=== PATIENT | male | born 1955 | race Caucasian/White ===

== ENCOUNTER 2023-04-29 08:32 | Emergency (ER) | payer OTHER ==
--- OUTSIDE RECORDS SUMMARY | 2023-04-29 08:35 | XMS REPORT | Continuity of Care Document ---
:1955 Author Organization [facility] t Address [address] [place] [address] Care Team Providers Name Role Phone José Miguel Hernandez Primary Care Physician JOSE D BUCK Attending Clinician Unavailable Kalia Chairez MD Attending Clinician Jose D Buck MD Attending Clinician Doctor Unassigned, [place] Attending Clinician Unavailable ALEX RAUSCH Attending Clinician Unavailable Payers Payer Name Policy Type Policy Number Effective Date Expiration Date Cyndee gonzalez [employer] MANAGED [id number] 2021 MEDICARE PPO-ARIELA 00:00:00 [employer] O [id number] 2018 00:00:00 Problems Condition Condition Condition Status Onset Resolution Last Treating Co mments Source Name Details Category Date Date Treatment Clinician Date No known No known Disease Unive rs active active ity of problems problems [facility] Allergies, Adverse Reactions, Alerts This patient has no known allergies or adverse reactions. Social History Social Habit Start Date Stop Date Quantity Comments Source Exposure to 2021-10-01 2021-10-11 Not sure [facility] SARS-CoV-2 (event) 00:00:00 09:59:00 Medica l Branch Sex Assigned [birth year] [facility] 00:00:00 00:00:00 Medical Branch Smoking Status Start Date Stop Date Source Unknown if ever smoked [facility] Medications Ordered Filled Start Stop Current Ordering Indication Dosage Frequency Signature Comments Components Source Medication Medication Date Date Medication? Clinician (SIG) Name Name ketoconazol Yes [id number] Apply to Univers e 2 % 4-27 area(s) [place] Medical for Branch Itching. ketoconazol Yes [id number] Apply to Univers e 2 % cream 4-27 area(s) ity o f 00:00: daily. [address] hydrocortis Yes [id number] Apply to Univers one 2.5 % 4-27 area(s) 2 ity o f cream 00:00: (two) [place] 00 times Medical daily as Branch needed for Rash. Stop when clear, restart if rash returns. ketoconazol 2018-06 Yes [id number] Apply to Univers e 2 % 1-18 area(s) ity of shamp[place] needed Medical for Branch Itching. cefUROXime Yes TK 1 T PO Un lea 500 mg 3-04 BID ity of tablet 00:00: [address] Vital Signs Vital Name Observation Time Observation Value Comments Source Body height 2021-10-11 15:10:00 167.6 cm [facility] Procedures This patient has no known procedures. Encounters Start End Encounter Admission Attending Care Care Encounter Source Date/Time Date/Time Type Type Clinicians Facility Department ID 2021-10-11 2021-10-11 Outpatient Sri BUCK [facility] [id number] [facility] 10:15:00 11:23:28 JOSE D overton [facility] 2021-10-11 2021-10-11 Office Kalia Chairez [id number] [facility] 10:15:00 11:23:28 Visit Jose D Buck [facility] [id number] ity of CL[id number] [phone] [address] 2021-10-11 2021-10-11 Outpatient Sri BUCK [facility] [id number] Univers 10:15:00 11[facility]23:[facility]11 2021-10-11 Orders Doctor EDMOND [id number] Univers 00:00:00 00:00:00 Only Unassigned, ROBINSON [id number] ity of [place] [facility] [id number] [place] as [phone] [facility] [address] [place] 2021-10-11 2021-10-11 Letter Doctor FELI [id number] Univers 00:00:00 00:00:00 (Out) Unassigned, ROBINSON [id number] ity of [place] [facility] [id number] [place] [phone] [facility] [address] [place] 2020-08-21 2020-08-21 Outpatient [facility] [id number] Univers 09:25:00 09:25:00 ity [facility] 2020-08-20 2020-08-20 [facility] [id number] Univers 11:20:00 11:20:00 ALEX ity [facility] 2020-07-24 2020-07-24 Outpatient [facility] [id number] Univers 10:50:00 10:50:00 ity [facility] 2020-05-31 2020-05-31 Office CHRIST Buck [id number] Univers 11:36:38 12:10:05 Visit Jose D [facility] [id number] ity [id number] [phone] [address] 2020-05-31 2020-05-31 [facility] [id number] Univers 11:45:00 11:45:00 JOSE D ity [facility] 2020-05-31 2020-05-31 Orders Doctor EDMOND [id number] Univers 00:00:00 00:00:00 Only Unassigned, ROBIN[place] [id number] ity of [place] [facility] [id number] [place] [phone] [address] 2020-05-31 2020-05-31 Letter Doctor FELI [id number] Univers 00:00:00 00:00:00 (Out) Unassigned, ROBINSON [id number] ity of [place] [facility] [id number] [place] [phone] [facility] 044 Branch Results This patient has no known results.
[2023-04-29 08:54] LABS: Absolute Lymphocytes (CBC) 2.1 K/uL (0.7-4.9); Hematocrit 48.7 % (39.6-49.0); Lymphocytes % 21.9 % (15.3-44.8); MCV 93.8 fL (80-100); MPV 9.3 fL (7.6-11.3); Platelets 200 thou/uL (152-406); RBC Red Blood Cell Count 5.19 M/uL (4.33-5.43)
[2023-04-29] MEDS ORDERED: FAMOTIDINE 20 MG/2 ML VIAL IV ONE (09:00)
[2023-04-29 09:11] LABS: Albumin 4.2 g/dL (3.4-5.0); Bilirubin Total 1.4 mg/dL (0.2-1.0); Potassium 4.1 mEq/L (3.5-5.1)
--- NOTE | 2023-04-29 09:34 | RAD REPORT ---
EXAM DESCRIPTION: US - Abdomen Exam Limited - 04/29/2023 9:05 am CLINICAL HISTORY: ABD PAIN COMPARISON: Abdomen Exam Complete dated 01/01/2019 TECHNIQUE: Sonographic grayscale and color flow images of the right upper abdominal quadrant were o btained. FINDINGS: The gallbladder demonstrates no gallstones. No pericholecystic fluid or gallbladder wall t hickening. The common bile duct is normal measuring 3 mm. The liver demonstrates no findings of intrahepatic biliary dilatation. Diffuse hepatic parenchymal hy perechogenicity suggesting steatosis. Small irregular focus of hypoattenuation adjacent to the gallbl adder bed, may represent focal fatty sparing or a small cyst IMPRESSION: No evidence of cholelithiasis or acute cholecystitis. Diffuse hepatic steatosis with nonspecific hypoattenuating focus, may represent focal fatty sparing.
--- NOTE | 2023-04-29 10:20 | RAD REPORT ---
EXAM DESCRIPTION: CT - Abdomen Pelvis W Contrast - 04/29/2023 9:54 am CLINICAL HISTORY: ABD PAIN COMPARISON: Abdomen Exam Limited dated 04/29/2023; Abdomen Exam Complete dated 01/01/2019 TECHNIQUE: Thin cut axial CT imaging of the abdomen and pelvis was performed following intravenous a dministration of 100 mL Isovue 300. Multiplanar reformats were generated and reviewed. All CT scans are performed using dose optimization technique as appropriate and may include automated exposure control or mA/KV adjustment according to patient size. FINDINGS: No suspicious findings in the lung bases. The liver, spleen, adrenal glands, and pancreas show no suspicious findings. Gallbladder and biliary tree are also without suspicious finding. Symmetric renal function is seen with no hydronephrosis or radiopaque calculi. Large left renal cysts , including a lobulated septated upper pole 7.8 cm cyst with some minor septal calcification. A solid mass or peripheral cyst component is present at the upper pole just at the medial margin of this cys t, measuring 2.3 x 2.1 cm. No dilated bowel loops or bowel wall thickening. No free air, free fluid or inflammatory stranding. N o hernia, mass or bulky lymphadenopathy. The urinary bladder is without significant finding. No suspicious bony findings. IMPRESSION: Solid left renal 2.3 cm mass. This raises concern for renal cell carcinoma until proven otherwise. Other benign-appearing renal cysts, including a cyst with thin septations at the lateral m argin of this mass. No acute intra-abdominal process.
[2023-04-29 10:24] LABS: Urine Bilirubin NEGATIVE (Negative); Urine Blood Negative (Negative); Urine Clarity Clear (Clear); Urine Color Light-Yellow (Yellow); Urine Glucose NEGATIVE (Negative); Urine Protein NEGATIVE (Negative); Urine Urobilinogen Normal (Normal)
--- NOTE | 2023-04-29 10:34 | EDPHYS ---
Physician Documentation [facility] Name: Paul Solis Sr Age: 67 yrs Sex: Male : 1955 Arrival Date: 04/29/2023 Time: 08:32 Bed 8 Private MD: Paul Hernandez T ED Physician Gokul Rivera HPI: 04/29 08:42 This 67 yrs old Male presents to ER via Unassigned with complaints of Abdominal Pain. ms3 08:42 67-year-old male with no past medical history presents for right upper quadrant ms3 abdominal pain that began on Saturday. Patient states the pain radiates to his back is rated at 4-5/10. Patient states taking Tylenol and Advil helps as well as standing. Patient denies nausea, vomiting, fevers, chills. Historical: - Allergies: 08:43 No Known Allergies; jl7 - Home Meds: 08:43 None [Active]; jl7 - PMHx: 08:43 None; jl7 - PSHx: 08:43 Appendectomy; jl7 - Immunization history:: Adult Immunizations unknown. - Social history:: Smoking status: Patient denies any tobacco usage or history of. ROS: 08:42 Constitutional: Negative for fever, and chills. Neck: Negative for injury, pain, and ms3 swelling, Cardiovascular: Negative for chest pain, and palpitations. Respiratory: Negative for shortness of breath, cough, wheezing, and pleuritic chest pain, 08:42 MS/Extremity: Negative for injury and deformity, Skin: Negative for injury, rash, and discoloration, 08:42 Abdomen/GI: Positive for abdominal pain, Negative for nausea, vomiting, and diarrhea, 08:42 All other systems are negative, Exam: 08:42 Constitutional: This is a well developed, well nourished patient who is awake, alert, ms3 and in no acute distress. Head/Face: Normocephalic, atraumatic. Neck: Trachea midline, no cervical lymphadenopathy. Supple, full range of motion without nuchal rigidity, or vertebral point tenderness. No Meningismus. Chest/axilla: Normal chest wall appearance and motion. Nontender with no deformity. Cardiovascular: Regular rate and rhythm with a normal S1 and S2. No gallops, murmurs, or rubs. Normal PMI, no JVD. No pulse deficits. Respiratory: Lungs have equal breath sounds bilaterally, clear to auscultation and percussion. No rales, rhonchi or wheezes noted. No increased work of breathing, no retractions or nasal flaring. Abdomen/GI: Soft, non-tender, with normal bowel sounds. No distension or tympany. No guarding or rebound. No evidence of tenderness throughout. Back: No spinal tenderness. No costovertebral tenderness. Full range of motion. Skin: Warm, dry with normal turgor. Normal color with no rashes, no lesions, and no evidence of cellulitis. MS/ Extremity: Pulses equal, no cyanosis. Neurovascular intact. Full, normal range of motion. Vital Signs: 08:40 BP 130 / 74; Pulse 57; Resp 20; Temp 97.1(TE); Pulse Ox 100% ; Pain 4/10; tm6 08:42 BP 130 / 74; Pulse 50; Resp 17; Pulse Ox 100% ; Weight 83.91 kg; Height 5 ft. 6 in. ; jl7 Pain 5/10; 09:27 BP 138 / 68; Pulse 48; Pulse Ox 98% on R/A; tm6 10:22 BP 139 / 69; Pulse 52; Pulse Ox 100% ; tm6 08:42 Body Mass Index 29.86 (83.91 kg, 167.64 cm) jl7 08:40 Pain Scale: Adult tm6 08:42 Pain Scale: Adult jl7 MDM: 08:41 Patient medically screened. ms3 08:42 Differential diagnosis: cholecystitis, Cholelithiasis, gastritis, non-specific abd ms3 pain, pancreatitis. 10:34 Data reviewed: vital signs, nurses notes, and as a result, I will discharge patient. I ms3 considered the following discharge prescriptions or medication management in the emergency department Medications were administered in the Emergency Department. See MAR. Counseling: I had a detailed discussion with the patient and/or guardian regarding the historical points, exam findings, and any diagnostic results supporting the discharge/admit diagnosis, lab results, radiology results, the need for outpatient follow up, to return to the emergency department if symptoms worsen or persist or if there are any questions or concerns that arise at home. Special discussion: Based on the patient's Hx, exam, and Dx evaluation, there is no indication for emergent surgery or inpatient Tx. It is understood by the patient/guardian that if the Sx's persist or worsen they need to return immediately for re-evaluation. ED course: Discussed labs, ultrasound with CT with patient's . Patient to follow-up primary care physician to 3 days. Patient understands agrees with plan. All questions were answered. Return precautions discussed include worsening symptoms, or any other concerns. 04/29 08:41 Order name: CBC with Diff; Complete Time: 09:40 ms3 04/29 08:41 Order name: CMP; Complete Time: 09:40 ms3 04/29 08:41 Order name: Lipase; Complete Time: 09:40 ms3 04/29 08:41 Order name: Urinalysis w/ reflexes; Complete Time: 10:24 ms3 04/29 08:41 Order name: US Abdomen Limited; Complete Time: 09:40 ms3 04/29 09:41 Order name: CT Abd/Pelvis - IV Contrast Only; Complete Time: 10:24 ms3 04/29 08:41 Order name: IV Saline Lock; Complete Time: 08:49 ms3 04/29 08:41 Order name: Labs collected and sent; Complete Time: 08:49 ms3 Administered Medications: 09:08 Drug: Famotidine IVP 20 mg IVP once; dilute with 10 mL 0.9% NaCl; give over 2 minutes tm6 Route: IVP; Site: right antecubital; 09:27 Drug: NS 0.9% IV 500 ml IV at bolus once Route: IV; Rate: bolus; Site: right tm6 antecubital; Disposition Summary: 04/29/23 10:34 Discharge Ordered Notes: Location: Home ms3 Condition: Stable ms3 Diagnosis - Left Renal Mass ms3 - Upper abdominal pain, unspecified ms3 Followup: ms3 - With: Paul Hernandez MD - When: 2 - 3 days - Reason: Recheck today's complaints Followup: ms3 - With: Silvia Goodson MD - When: 2 - 3 days - Reason: Recheck today's complaints Discharge Instructions: - Discharge Summary Sheet ms3 - Abdominal Pain, Adult ms3 - Renal Mass ms3 Forms: - Medication Reconciliation Form ms3 - Thank You Letter ms3 - Antibiotic Education ms3 - Prescription Opioid Use ms3 - Patient Portal Instructions ms3 - Leadership Thank You Letter ms3 Signatures: Dispatcher [employer] EDMS Sanchez, Jahala, RN RN jl7 Gokul Rivera DO DO ms3 Dariel Dsouza, RN RN tm6
--- NOTE | 2023-04-29 10:34 | ER ---
Nurse's Notes [facility] Name: Paul Solis Sr Age: 67 yrs Sex: Male : 1955 Arrival Date: 04/29/2023 Time: 08:32 Bed 8 Private MD: Paul Hernandez T Diagnosis: Left Renal Mass;Upper abdominal pain, unspecified Presentation: 04/29 08:42 Chief complaint: Patient states: RUQ pain since Saturday, denies N/V/D, denies fever. jl7 Coronavirus screen: At this time, the client does not indicate any symptoms associated with coronavirus-19. Ebola Screen: No symptoms or risks identified at this time. Initial Sepsis Screen: Does the patient meet any 2 criteria? No. Patient's initial sepsis screen is negative. Does the patient have a suspected source of infection? No. Patient's initial sepsis screen is negative. Risk Assessment: Do you want to hurt yourself or someone else? Patient reports no desire to harm self or others. Onset of symptoms was April 27, 2023. 08:42 Method Of Arrival: Ambulatory [facility] 08:42 Acuity: APRIL 3 jl7 Triage Assessment: 08:43 General: Appears in no apparent distress. uncomfortable, Behavior is calm, cooperative, jl7 appropriate for age. Pain: Complains of pain in right upper quadrant. GI: Reports upper abdominal pain. Historical: - Allergies: 08:43 No Known Allergies; jl7 - Home Meds: 08:43 None [Active]; jl7 - PMHx: 08:43 None; jl7 - PSHx: 08:43 Appendectomy; jl7 - Immunization history:: Adult Immunizations unknown. - Social history:: Smoking status: Patient denies any tobacco usage or history of. Screenin:43 [facility] ED Fall Risk Assessment (Adult) History of falling in the last 3 months, tm6 including since admission No falls in past 3 months (0 pts). Abuse screen: Denies threats or abuse. Denies injuries from another. Nutritional screening: No deficits noted. Tuberculosis screening: No symptoms or risk factors identified. Assessment: 08:43 General: Appears in no apparent distress. Behavior is calm, cooperative, appropriate tm6 for age. Pain: Complains of pain in posterior aspect of right lateral abdomen and right upper quadrant Pain radiates to posterior aspect of right lateral abdomen Pain currently is 4 out of 10 on a pain scale. Quality of pain is described as dull. Neuro: Level of Consciousness is awake, alert, obeys commands, Oriented to person, place, time, situation. Cardiovascular: Capillary refill < 3 seconds Patient's skin is warm and dry. Respiratory: Airway is patent Respiratory effort is even, unlabored, Respiratory pattern is regular, symmetrical. GI: Bowel sounds present X 4 quads. Abd is soft and non tender X 4 quads. Reports upper abdominal pain. : No signs and/or symptoms were reported regarding the genitourinary system. EENT: No signs and/or symptoms were reported regarding the EENT system. Derm: No signs and/or symptoms reported regarding the dermatologic system. Musculoskeletal: No signs and/or symptoms reported regarding the musculoskeletal system. 08:52 Reassessment: pt taken to ultrasound via wheelchair. mb9 09:27 Reassessment: Patient appears in no apparent distress at this time. Patient and/or tm6 family updated on plan of care and expected duration. Pain level reassessed. Patient is alert, oriented x 3, equal unlabored respirations, skin warm/dry/pink. 10:22 Reassessment: Patient appears in no apparent distress at this time. Patient and/or tm6 family updated on plan of care and expected duration. Pain level reassessed. Patient is alert, oriented x 3, equal unlabored respirations, skin warm/dry/pink. Vital Signs: 08:40 BP 130 / 74; Pulse 57; Resp 20; Temp 97.1(TE); Pulse Ox 100% ; Pain 4/10; tm6 08:42 BP 130 / 74; Pulse 50; Resp 17; Pulse Ox 100% ; Weight 83.91 kg; Height 5 ft. 6 in. ; jl7 Pain 5/10; 09:27 BP 138 / 68; Pulse 48; Pulse Ox 98% on R/A; tm6 10:22 BP 139 / 69; Pulse 52; Pulse Ox 100% ; tm6 08:42 Body Mass Index 29.86 (83.91 kg, 167.64 cm) jl7 08:40 Pain Scale: Adult tm6 08:42 Pain Scale: Adult jl7 ED Course: 08:35 Patient arrived in ED. mr 08:35 Paul Hernandez MD is Private Physician. mr 08:36 Gokul Rivera DO is Attending Physician. ms3 08:36 Dariel Dsouza, SOLOMON is Primary Nurse. tm6 08:43 Triage completed. jl7 08:43 Arm band placed on right wrist. jl7 08:43 Patient has correct armband on for positive identification. Bed in low position. Call tm6 light in reach. Side rails up X 1. Provided Education on: plan of care. Client placed on continuous cardiac and pulse oximetry monitoring. NIBP monitoring applied. Door closed. Noise minimized. 08:43 No provider procedures requiring assistance completed. tm6 08:49 CBC with Diff Sent. mb9 08:49 CMP Sent. mb9 08:49 Lipase Sent. mb9 08:49 Inserted saline lock: 22 gauge in right antecubital area, using aseptic technique. mb9 Blood collected. 09:05 US Abdomen Limited In Process Unspecified. EDMS 09:49 Warm blanket given. tm6 09:56 CT Abd/Pelvis - IV Contrast Only In Process Unspecified. EDMS 10:17 Urine collected: clean catch specimen, clear. ap3 10:17 Urinalysis w/ reflexes Sent. ap3 10:32 Paul Hernandez MD is Referral Physician. ms3 10:32 Silvia Goodson MD is Referral Physician. ms3 10:54 IV discontinued, intact, bleeding controlled, No redness/swelling at site. Pressure tm6 dressing applied. Administered Medications: 09:08 Drug: Famotidine IVP 20 mg IVP once; dilute with 10 mL 0.9% NaCl; give over 2 minutes tm6 Route: IVP; Site: right antecubital; 09:27 Drug: NS 0.9% IV 500 ml IV at bolus once Route: IV; Rate: bolus; Site: right tm6 antecubital; Medication: 08:43 VIS not applicable for this client. tm6 Outcome: 10:34 Discharge ordered by . ms3 10:54 Discharged to home ambulatory, with family, tm6 10:54 Condition: stable 10:54 Discharge instructions given to patient, family, Instructed on discharge instructions, follow up and referral plans. Demonstrated understanding of instructions, follow-up care, 10:54 Patient left the ED. tm6 Signatures: Dispatcher [employer] EDMS Adamaris Mueller, Reg Reg mr Dharmesh Sanchez RN RN jl7 Cassia Mcgee RN RN ap3 Gokul Rivera DO DO ms3 Adamaris Molina, RN RN mb9 Dariel Dsouza RN RN tm6
[2023-04-29 10:59] VITALS: TEMP 97.1
[2023-04-29 11:04] VITALS: BP 139/69; O2SAT 100
== END 2023-04-29 10:54 | disposition home or self-care (01) ==
LOC: ER 08:32
DX: R10.11 Right upper quadrant pain (principal); N28.9 Disorder of kidney and ureter, unspecified
CPT/HCPCS: 85025; 36415; 81003; 83690; 80053; 74177; 76705; 96374; 99284; Q9967